=== PATIENT | female | born 1950 | race Caucasian/White ===

== ENCOUNTER 2017-08-15 07:23 | Day surgery (SDC) | payer MEDICARE, OTHER ==
[~2017-08-15 07:23] MED LIST: Lactated Ringers 1,000 ML IV SCH
[2017-08-15] MEDS ORDERED: Propofol 200 MG/20 ML SDV ONE ×2 (08:38→09:26)
[2017-08-15] MEDS ORDERED: fentaNYL 100 MCG/2 ML SDV ONE (08:39)
--- NOTE | 2017-08-15 11:38 | OR ---
PREOPERATIVE DIAGNOSIS: History of polyps, family history of colon cancer. POSTOPERATIVE DIAGNOSIS: Sigmoid diverticulosis, otherwise, normal exam. PROCEDURE PROPOSED AND PROCEDURE DONE: Total flexible colonoscopy. INDICATION: This is a 66-year-old female who comes in for recommended colonoscopy. She did have 1 done close to 10 years ago and was found to have some adenomatous polyps. She also has a family history of a brother with colon cancer. She denies any symptomatology. TECHNIQUE: The patient was brought to the endoscopy suite, placed in left lateral decubitus position. She was sedated with MAC anesthesia per [employer]. The flexible video colonoscope was then passed transanally and under visualization advanced to the cecum without difficulty. Examination revealed a normal ascending, transverse, descending colon; sigmoid colon revealed [id number] diverticulosis and the rectum was normal. There was no evidence of any polyps, colitis, or other abnormalities and the scope was then withdrawn. The patient tolerated the procedure well. IMPRESSION: 1. Sigmoid diverticulosis, otherwise, normal exam. 2. History of polyps. 3. Family history of colon cancer. PLAN: She should continue with colonic surveillance every 5 years hereafter for a couple more times. The patient is reassured that her exam today was good. SCM: 08/15/2017 09:37:33 MODL: 08/15/2017 11:22:37 /[id number]
== END 2017-08-15 10:25 | disposition home or self-care (01) ==
LOC: VM.SDS 07:23
PROVIDERS: ATTEND Surgery
DX: Z12.11 Encounter for screening for malignant neoplasm of colon (principal); K57.30 Diverticulosis of large intestine without perforation or abscess without bleeding; Z86.010 Personal history of colon polyps; Z80.0 Family history of malignant neoplasm of digestive organs; Z91.09 Other allergy status, other than to drugs and biological substances; J30.2 Other seasonal allergic rhinitis
CPT/HCPCS: G0105; J2704; J3010; J7120; 00811

== ENCOUNTER 2023-01-16 10:55 | Day surgery (SDC) | payer MEDICARE, OTHER ==
[2023-01-16] MEDS ORDERED: fentaNYL 100 MCG/2 ML SDV ONE (11:31)
[2023-01-16] MEDS ORDERED: Propofol 200 MG/20 ML SDV ONE ×2 (11:31→12:16)
== END 2023-01-16 13:21 | disposition home or self-care (01) ==
LOC: VM.SDS 10:55
PROVIDERS: ATTEND Surgery
DX: Z12.11 Encounter for screening for malignant neoplasm of colon (principal); K57.30 Diverticulosis of large intestine without perforation or abscess without bleeding; E78.00 Pure hypercholesterolemia, unspecified; K21.9 Gastro-esophageal reflux disease without esophagitis; I12.9 Hypertensive chronic kidney disease with stage 1 through stage 4 chronic kidney disease, or unspecified chronic kidney disease; R73.9 Hyperglycemia, unspecified; N18.31 Chronic kidney disease, stage 3a; M05.9 Rheumatoid arthritis with rheumatoid factor, unspecified; M17.0 Bilateral primary osteoarthritis of knee; E66.01 Morbid (severe) obesity due to excess calories; Z79.1 Long term (current) use of non-steroidal anti-inflammatories (NSAID); Z79.899 Other long term (current) drug therapy; Z79.82 Long term (current) use of aspirin; Z91.048 Other nonmedicinal substance allergy status; Z90.710 Acquired absence of both cervix and uterus; Z96.652 Presence of left artificial knee joint; Z98.890 Other specified postprocedural states
CPT/HCPCS: J2704; J3010; J7120